=== PATIENT | male | born 1990 | race African-American/Black ===

== ENCOUNTER 2020-10-20 17:48 | Emergency (ER) | payer SELFPAY ==
--- NOTE | 2020-10-20 18:27 | ER Document Report ---
ED Medical Screen (RME) - General Chief Complaint: Wound Recheck Stated Complaint: FINGER SWELLING Time Seen by Provider: 10/20/20 18:15 Information source: Patient - HPI Notes: Patient is a 30 y/o male who presents with a left middle finger infection after smashing his finger in a window one week ago. Patient was seen at a local urgent care two days ago and had an I&D performed on his left middle finger paronychia. He was given a dose of rocephin and prescribed clindamycin and keflex. 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 He returned to the urgent care this afternoon for a wound recheck and was told to come to the ED as the infection to his finger had worsened and he now has swelling and redness to his left hand. He denies fever. - Related Data Allergies/Adverse Reactions: No Known Allergies Allergy (Verified 10/20/20 18:12) Physical Exam - Vital signs Vitals: Temp Pulse Resp BP Pulse Ox 98.0 F 81 16 152/94 H 98 10/20/20 18:10 10/20/20 18:10 10/20/20 18:10 10/20/20 18:10 10/20/20 18:10 - Cardiovascular Pulses: Normal: Radial Normal capillary refill: Yes - Extremities Hand: Other - paronychia with purulent drainage to the left middle finger. Swelling and redness surrounding the area and spreading down his middle finger to his left hand. Course - Re-evaluation Re-evalutation: I have greeted and performed a rapid initial assessment of this patient. A comprehensive ED assessment and evaluation of the patient, analysis of test results and completion of medical decision making process will be conducted by an additional ED providers. - Vital Signs Vital signs: Temp Pulse Resp BP Pulse Ox 98.0 F 81 16 152/94 H 98 10/20/20 18:10 10/20/20 18:10 10/20/20 18:10 10/20/20 18:10 10/20/20 18:10
[2020-10-20 18:56] LABS: ABSOLUTE BASOPHILS # (AUTO) 0.1 10^3/uL (0.0-0.2); ABSOLUTE EOSINOPHILS # (AUTO) 0.2 10^3/uL (0.0-0.6); ABSOLUTE LYMPHOCYTES (AUTO) 2.7 10^3/uL (0.5-4.7); ABSOLUTE NEUT (AUTO) 4.3 10^3/uL (1.7-8.2); BASOPHILS % (AUTO) 0.8 % (0-2); EOSINOPHILS % (AUTO) 2.4 % (0-6); HEMATOCRIT 43.6 % (37.9-51.0); HEMOGLOBIN 15.1 g/dL (13.5-17.0); LYMPHOCYTES % (AUTO) 32.6 % (13-45); MEAN CORPUSCULAR HEMOGLOBIN 30.6 pg (27.0-33.4); MEAN CORPUSCULAR HGB CONC 34.6 g/dL (32.0-36.0); MEAN CORPUSCULAR VOLUME 88 fl (80-97); MONOCYTES % (AUTO) 12.5 % (3-13); PLATELET COUNT 277 10^3/uL (150-450); RED BLOOD COUNT 4.93 10^6/uL (4.35-5.55); SEGMENTED NEUTROPHILS % (AUTO) 51.7 % (42-78); TOTAL CELLS COUNTED % (AUTO) 100 %; WHITE BLOOD COUNT 8.4 10^3/uL (4.0-10.5)
--- NOTE | 2020-10-20 19:04 | RADIOLOGY REPORT (SQ) ---
EXAM DESCRIPTION: HAND LEFT 3 VIEWS IMAGES COMPLETED DATE/TIME: 10/20/2020 6:36 pm REASON FOR STUDY: hand infection COMPARISON: None. EXAM PARAMETERS: NUMBER OF VIEWS: Three views. TECHNIQUE: AP, lateral and oblique radiographic images acquired of the left hand. LIMITATIONS: None. FINDINGS: MINERALIZATION: Normal. BONES: No acute fracture or dislocation. No worrisome bone lesions. JOINTS: No effusion. SOFT TISSUES: 3rd digit soft tissue swelling, no radiopaque foreign body. OTHER: No other significant finding. IMPRESSION: NO FRACTURE.3rd digit soft tissue swelling, no radiopaque foreign body. TECHNICAL DOCUMENTATION: JOB ID: [id number] [place]-72 2010 [employer]- All Rights Reserved Reading location - IP/workstation name: [email or web address]
[2020-10-20 19:13] LABS: ALBUMIN 4.8 g/dL (3.5-5.0); ALKALINE PHOSPHATASE 83 U/L (38-126); ANION GAP 11 (5-19); ASPARTATE AMINO TRANSFERASE 41 U/L (17-59); BILIRUBIN,DIRECT 0.1 mg/dL (0.0-0.4); BILIRUBIN,TOTAL 0.8 mg/dL (0.2-1.3); BLOOD UREA NITROGEN 11 mg/dL (7-20); CALCIUM 9.9 mg/dL (8.4-10.2); CARBON DIOXIDE 26 mmol/L (22-30); CHLORIDE 103 mmol/L (98-107); GLUCOSE 88 mg/dL (75-110); TOTAL PROTEIN 8.4 g/dL (6.3-8.2)
[2020-10-20] MEDS ORDERED: CEFTRIAXONE INJ 1000 MG VIAL IM ONE (21:01)
[2020-10-20] MEDS ORDERED: LIDOCAINE 1% INJ-PF (10 MG/ML) 30 ML SDV NEB ONE (21:01)
--- NOTE | 2020-10-20 21:02 | ER Document Report ---
ED Hand/Wrist Injury - General Chief Complaint: Wound Recheck Stated Complaint: FINGER SWELLING Time Seen by Provider: 10/20/20 18:15 Primary Care Provider: SHANON SALVADOR DO [ACTIVE STAFF] - Follow up in 3-5 days (Call for an outpatient follow-up appointment in 2 to 3 days.) Mode of Arrival: Ambulatory Information source: Patient Notes: 30-year-old male with no previous medical problems presents to the emergency room with erythema, swelling, to left finger. Patient states 8 days ago he got it caught in a house window. Patient states he was seen at urgent care yesterday had negative x-rays. States they lanced it and drained a moderate amount of pus. He was given a shot of antibiotics and discharged home with 3 additional antibiotics. He states that he only filled one of them last night that he did not get the other 2 until later today. States he went to urgent care for follow-up today as instructed and was referred to the emergency room for possible IV antibiotics. He denies any pain. States he is not had any additional discharge or draining. States he is actually able to flex and extend the finger now which he could not do yesterday. Has only taken a few of his antibiotics. He denies any fevers. Patient is right-handed. States his teta nus is up-to-date. TRAVEL OUTSIDE OF THE [place] IN LAST 30 DAYS: No - Related Data Allergies/Adverse Reactions: No Known Allergies Allergy (Verified 10/20/20 18:12) Past Medical History - General Information source: Patient - Social History Smoking Status: Current Every Day Smoker Frequency of alcohol use: None Drug Abuse: Marijuana Family History: Reviewed & Not Pertinent Review of Systems - Review of Systems Constitutional: No symptoms reported Cardiovascular: No symptoms reported Respiratory: No symptoms reported Musculoskeletal: Joint pain Skin: Other - Erythema, swelling Neurological/Psychological: No symptoms reported -: Yes All other systems reviewed and negative Physical Exam - Vital signs Vitals: Temp Pulse Resp BP Pulse Ox 98.0 F 81 16 152/94 H 98 10/20/20 18:10 10/20/20 18:10 10/20/20 18:10 10/20/20 18:10 10/20/20 18:10 - General General appearance: Appears well, Alert In distress: Mild - Respiratory Respiratory status: No respiratory distress Chest status: Nontender Breath sounds: Normal Chest palpation: Normal - Cardiovascular Rhythm: Regular Heart sounds: Normal auscultation Murmur: No - Extremities General lower extremity: Normal inspection Hand: Tender - Tenderness with erythema noted to the base of the left middle finger. There is no active discharge or draining noted. Erythema extends to the PIP joint. There is no obvious deformity noted. - Neurological Neuro grossly intact: Yes Cognition: Normal Orientation: AAOx4 [place]i Coma Scale Eye Opening: Spontaneous [place] Coma Scale Verbal: Oriented [place] Coma Scale Motor: Obeys Commands [place] Coma Scale Total: 15 Speech: Normal Motor strength normal: LUE, RUE, LLE, RLE Sensory: Normal Notes: Full range of motion with flexion and extension of all digits to the left hand. Positive left radial pulse. Capillary refill is less than 3 seconds. Patient is neurovascularly intact. - Skin Skin Temperature: Warm Skin Moisture: Dry Skin Color: Erythema - Left middle finger is erythematous from the PIP joint to the base of the left middle finger. Tender but not warm to touch. No active discharge or draining noted. Skin Turgor: Edematous Skin irregularity: Erythema Location of irregularity: Extremities Irregularity with: Swelling, Tenderness. negative: Warmth, Weeping Course - Re-evaluation Re-evalutation: 10/20/20 20:57 Patient is afebrile, nontoxic-appearing, no acute distress noted. No active discharge or draining noted from the base of the left fingernail. Patient is currently on 3 oral antibiotics. Does not know what antibiotics he is on. Will give additional IM antibiotics as he did not start his antibiotics until tonight. He was counseled on warm soaks 20 minutes 3 times a day. Recommend follow-up in 2 days with orthopedics. Patient was provided with on-call orthopedist. Continue with current oral antibiotics. Patient was given strict return to the emergency room guidelines. Return for any new or worsening symptoms. All questions were answered. Patient verbalized understanding and agrees with plan of care. 10/21/20 00:23 - Vital Signs Vital signs: Temp Pulse Resp BP Pulse Ox 98.0 F 82 14 163/99 H 96 10/20/20 21:29 10/20/20 21:29 10/20/20 21:29 10/20/20 21:29 10/20/20 21:29 - Laboratory Result Diagrams: 10/20/20 18:38 10/20/20 18:38 Laboratory results interpreted by me: 10/20/20 18:38 Total Protein 8.4 H - Diagnostic Test Radiology reviewed: Reports reviewed Discharge - Discharge Clinical Impression: Cellulitis of left middle finger, Paronychia of left middle finger Condition: Stable Disposition: HOME, SELF-CARE Instructions: Cellulitis ([facility]), Paronychia ([facility]) Additional Instructions: The erythema is likely due to infection of your skin. You need to take the antibiotics as prescribed. Do not stop even if the erythema and swelling goes away until you have completed all the antibiotics. You should also return if you develop fevers with temperature greater than 101, persistent vomiting, worsening pain, or have any other symptoms that are concerning to you. Warm soaks 20 minutes 3 times a day. Outpatient follow-up with orthopedics for recheck in 2 days as discussed. Referrals: SHANON SALVADOR DO [ACTIVE STAFF] - Follow up in 3-5 days (Call for an outpatient follow-up appointment in 2 to 3 days.)
[2020-10-20 21:33] VITALS: BP 163/99
== END 2020-10-20 21:35 | disposition home or self-care (01) ==
LOC: ER 17:48
DX: L03.012 Cellulitis of left finger (principal); F17.200 Nicotine dependence, unspecified, uncomplicated
CPT/HCPCS: 99284; 96372; 36415; 87040; 85025; 80053; 73130; J3490; J0696